=== PATIENT | male | born 1955 | race African-American/Black ===

== ENCOUNTER 2022-06-22 14:08 | Emergency (ER) | payer OTHER, MEDICAID ==
[~2022-06-22] VITALS: Ht 175.3 cm; Wt 80.0 kg
[2022-06-22] MEDS ORDERED: IBUP-2028 MT (14:57)
[2022-06-22] MEDS ORDERED: IBUPROFEN 400MG TABLET PO ONE (16:00)
[2022-06-22] MEDS ORDERED: ACETAMINOPHEN 325MG TABLET PO ONE (16:00)
[2022-06-22] MEDS ORDERED: IBUPROFEN 400MG TABLET PO SCH (17:45)
[2022-06-22] MEDS ORDERED: ACETAMINOPHEN 325MG TABLET PO SCH (17:45)
[2022-06-22 20:28] VITALS: BP 149/86
== END 2022-06-22 21:00 | disposition home or self-care (01) ==
LOC: ER 14:08
DX: M79.672 Pain in left foot (principal); M72.2 Plantar fascial fibromatosis; J44.9 Chronic obstructive pulmonary disease, unspecified; I10 Essential (primary) hypertension; Z86.73 Personal history of transient ischemic attack (TIA), and cerebral infarction without residual deficits
CPT/HCPCS: 99283

== ENCOUNTER 2022-08-11 18:34 | Inpatient (IN) | payer OTHER, MEDICAID ==
[~2022-08-11] VITALS: Ht 180.3 cm; Wt 89.8 kg
[~2022-08-11 18:34] MED LIST: AMLO10TA80 MT; ATOR80TA MT; CHOL2000; CLOP75TA33 MT; IBUP-2028 MT; SACU1TAB7 MT
[2022-08-11 19:48] LABS: BASOPHILS % 0.4 % (0.0-2.0); CHLORIDE 107 mEq/L (98-107); EOSINOPHILS % 8.3 % (0.0-5.0); HEMOGLOBIN. 12.5 g/dL (14.0-18.0); LYMPHOCYTES % 23.1 % (20.0-50.0); MEAN CORPUSCULAR HEMOGLOBIN 30.1 pg (28.0-32.0); MEAN CORPUSCULAR VOLUME 94.3 fL (80.0-94.0); MEAN PLATELET VOLUME 8.8 fl (7.4-10.4); MONOCYTES % 6.4 % (2.0-8.0); NEUTROPHILS % 61.8 % (40.0-76.0); PLATELET 279 x1000/uL (130-400); RED BLOOD CELL COUNT 4.14 mill/uL (4.7-6.1); RED CELL DISTRIBUTION WIDTH 12.8 % (11.6-14.6)
[2022-08-11] MEDS ORDERED: SODIUM CHLORIDE 0.9% 1,000 ML IV NR (21:15)
[2022-08-11] MEDS ORDERED: ACETAMINOPHEN 325MG TABLET PO NR (21:45)
[2022-08-12 08:10] VITALS: BP 120/78; PULSE 76; RESP 19; TEMP 97.5
[2022-08-12] MEDS ORDERED: CLONIDINE 0.1MG TABLET PO PRN (11:15)
[2022-08-12] MEDS: AMLODIPINE 10MG TABLET PO SCH (11:15)
[2022-08-12] MEDS ORDERED: MAGNESIUM/ALUMINUM HYDROXIDE/SIMETHICONE 30ML UDC PO PRN (11:15)
[2022-08-12 12:00] VITALS: BP 120/78; PULSE 76; RESP 19; TEMP 97.5
[2022-08-12] MEDS: ENOXAPARIN 30MG/0.3ML SYR SUBCUT SCH (12:00)
[2022-08-12 16:00] VITALS: BP 118/68; PULSE 78; RESP 17; TEMP 97.7
[2022-08-12 18:20] LABS: CREATINE KINASE 1126 IU/L (39-308)
[2022-08-12 20:00] VITALS: BP 104/70; PULSE 81; RESP 19; TEMP 97.5
[2022-08-13] VITALS: BP 116/88; PULSE 81; RESP 18; TEMP 98.1
[2022-08-13 04:00] VITALS: BP 124/92; PULSE 78; RESP 20; TEMP 98.1
[2022-08-13] MEDS ORDERED: SODIUM CHLORIDE 0.9% 1,000 ML IV SCH (07:15)
[2022-08-13] MEDS ORDERED: LACTULOSE 20G/30ML UDC PO SCH (07:15)
[2022-08-13 08:00] VITALS: BP 144/80; PULSE 81; RESP 18; TEMP 98
[2022-08-13] MEDS: AMLODIPINE 10MG TABLET PO SCH (10:16)
[2022-08-13] MEDS: CLOPIDOGREL 75MG TABLET PO SCH (10:16)
[2022-08-13] MEDS: ENOXAPARIN 30MG/0.3ML SYR SUBCUT SCH (10:18)
[2022-08-13 12:00] VITALS: BP 120/76; PULSE 75; RESP 18; TEMP 97.4
[2022-08-13] MEDS ORDERED: IPRATROPIUM/ALBUTEROL 0.5-3(2.5)MG/3ML NEB HHN PRN (14:15)
[2022-08-13] MEDS: SODIUM CHLORIDE 0.9% 1,000 ML IV SCH ×2 (15:42→20:50)
[2022-08-13 16:00] VITALS: BP 115/83; PULSE 82; RESP 20; TEMP 98.8
[2022-08-13 16:51] LABS: BASOPHILS % 0.6 % (0.0-2.0); EOSINOPHILS % 11.5 % (0.0-5.0); HEMATOCRIT. 37.9 % (42.0-52.0); HEMOGLOBIN. 12.4 g/dL (14.0-18.0); LYMPHOCYTES % 39.4 % (20.0-50.0); MEAN CORPUSCULAR HEMOGLOBIN 29.7 pg (28.0-32.0); MEAN CORPUSCULAR VOLUME 91.1 fL (80.0-94.0); MEAN PLATELET VOLUME 8.8 fl (7.4-10.4); MONOCYTES % 8.6 % (2.0-8.0); NEUTROPHILS % 39.9 % (40.0-76.0); PLATELET 325 x1000/uL (130-400); RED BLOOD CELL COUNT 4.16 mill/uL (4.7-6.1); RED CELL DISTRIBUTION WIDTH 12.7 % (11.6-14.6)
[2022-08-13 20:00] VITALS: BP 120/81; PULSE 87; RESP 20; TEMP 97.3
[2022-08-14] VITALS: BP 131/80; PULSE 69; RESP 17; TEMP 98.7
[2022-08-14 04:00] VITALS: BP 126/75; PULSE 72; RESP 18; TEMP 99.3
[2022-08-14 06:31] LABS: BASOPHILS % 0.7 % (0.0-2.0); HEMOGLOBIN. 12.5 g/dL (14.0-18.0); LYMPHOCYTES % 41.8 % (20.0-50.0); MEAN CORPUSCULAR HEMOGLOBIN 30.6 pg (28.0-32.0); MEAN PLATELET VOLUME 8.9 fl (7.4-10.4); MONOCYTES % 8.7 % (2.0-8.0); NEUTROPHILS % 36.8 % (40.0-76.0); PLATELET 336 x1000/uL (130-400); RED BLOOD CELL COUNT 4.07 mill/uL (4.7-6.1); RED CELL DISTRIBUTION WIDTH 12.6 % (11.6-14.6)
[2022-08-14 08:00] VITALS: BP 122/89; PULSE 70; RESP 18; TEMP 97.4
[2022-08-14] MEDS: CLOPIDOGREL 75MG TABLET PO SCH (08:52)
[2022-08-14] MEDS: AMLODIPINE 10MG TABLET PO SCH (08:52)
[2022-08-14] MEDS: ENOXAPARIN 30MG/0.3ML SYR SUBCUT SCH (08:53)
[2022-08-14] MEDS: ALLOPURINOL 100 MG TABLET PO SCH (11:50)
[2022-08-14 12:00] VITALS: BP 128/72; PULSE 73; RESP 18; TEMP 97.3
[2022-08-14 13:07] LABS: ANTI-NUCLEAR ANTIBODIES DIRECT Negative (Negative)
[2022-08-14 13:27] LABS: HEPATITIS B SURFACE ANTIGEN NEGATIVE
[2022-08-14] MEDS: SODIUM CHLORIDE 0.9% 1,000 ML IV SCH (13:30)
[2022-08-14 16:00] VITALS: BP 136/74; PULSE 65; RESP 18; TEMP 97.6
[2022-08-14] MEDS ORDERED: ACETAMINOPHEN 325MG TABLET PO PRN (16:00)
[2022-08-14 22:13] LABS: INR 1.1; PROTHROMBIN TIME 11.3 sec (9.6-11.0)
[2022-08-15] MEDS: SODIUM CHLORIDE 0.9% 1,000 ML IV SCH (05:13)
[2022-08-15 06:21] LABS: INR 1.1; PROTHROMBIN TIME 11.3 sec (9.6-11.0)
[2022-08-15 06:25] LABS: BASOPHILS % 0.8 % (0.0-2.0); EOSINOPHILS % 10.1 % (0.0-5.0); HEMATOCRIT. 34.9 % (42.0-52.0); HEMOGLOBIN. 11.6 g/dL (14.0-18.0); LYMPHOCYTES % 42.5 % (20.0-50.0); MEAN CORPUSCULAR VOLUME 90.5 fL (80.0-94.0); MEAN PLATELET VOLUME 8.9 fl (7.4-10.4); MONOCYTES % 7.2 % (2.0-8.0); NEUTROPHILS % 39.4 % (40.0-76.0); PLATELET 379 x1000/uL (130-400); RED BLOOD CELL COUNT 3.85 mill/uL (4.7-6.1); RED CELL DISTRIBUTION WIDTH 12.8 % (11.6-14.6)
[2022-08-15 08:00] VITALS: BP 143/89; PULSE 78; RESP 18; TEMP 97.1
[2022-08-15] MEDS: ALLOPURINOL 100 MG TABLET PO SCH (08:35)
[2022-08-15] MEDS: CLOPIDOGREL 75MG TABLET PO SCH (08:35)
[2022-08-15] MEDS: AMLODIPINE 10MG TABLET PO SCH (08:35)
[2022-08-15] MEDS: ENOXAPARIN 30MG/0.3ML SYR SUBCUT SCH (08:36)
[2022-08-15 12:00] VITALS: BP 128/84; PULSE 72; RESP 18; TEMP 97.1
[2022-08-15 16:00] VITALS: BP 123/93; PULSE 72; RESP 18; TEMP 97.3
[2022-08-15 20:00] VITALS: BP 126/76; PULSE 83; RESP 20; TEMP 97.7
[2022-08-16] VITALS: BP 141/93; PULSE 71; RESP 20; TEMP 98.7
[2022-08-16 04:00] VITALS: BP 132/84; PULSE 73; RESP 18; TEMP 97.6
[2022-08-16 07:17] LABS: BASOPHILS % 0.6 % (0.0-2.0); EOSINOPHILS % 7.4 % (0.0-5.0); HEMOGLOBIN. 12.1 g/dL (14.0-18.0); LYMPHOCYTES % 43.7 % (20.0-50.0); MEAN CORPUSCULAR HEMOGLOBIN 30.8 pg (28.0-32.0); MEAN CORPUSCULAR VOLUME 92.1 fL (80.0-94.0); MEAN PLATELET VOLUME 8.7 fl (7.4-10.4); MONOCYTES % 7.2 % (2.0-8.0); NEUTROPHILS % 41.1 % (40.0-76.0); PLATELET 400 x1000/uL (130-400); RED BLOOD CELL COUNT 3.91 mill/uL (4.7-6.1); RED CELL DISTRIBUTION WIDTH 12.9 % (11.6-14.6)
[2022-08-16 07:33] LABS: CHLORIDE 114 mEq/L (98-107)
[2022-08-16 08:00] VITALS: BP 128/88; PULSE 76; RESP 20; TEMP 97.1
[2022-08-16] MEDS: RIFAXIMIN 550 MG TABLET PO SCH ×2 (08:44→21:00)
[2022-08-16] MEDS: AMLODIPINE 10MG TABLET PO SCH (08:44)
[2022-08-16] MEDS: ALLOPURINOL 100 MG TABLET PO SCH (08:44)
[2022-08-16] MEDS: ENOXAPARIN 30MG/0.3ML SYR SUBCUT SCH (08:45)
[2022-08-16] MEDS: CLOPIDOGREL 75MG TABLET PO SCH (08:46)
[2022-08-16 12:00] VITALS: BP 127/76; PULSE 75; RESP 19; TEMP 97.2
[2022-08-16 12:39] LABS: CLARITY URINE CLEAR (CLEAR); COLOR URINE YELLOW (YELLOW); KETONES URINE NEGATIVE (NEGATIVE); LEUKOCYTE ESTERASE URINE NEGATIVE (NEGATIVE); NITRITE URINE NEGATIVE (NEGATIVE); OCCULT BLOOD URINE NEGATIVE (NEGATIVE); PH URINE 5.5 (4.5-8.0); PROTEIN URINE TRACE (NEGATIVE); SPECIFIC GRAVITY URINE 1.016 (1.005-1.030)
[2022-08-16] MEDS ORDERED: LACTULOSE 20G/30ML UDC PO PRN (12:45)
[2022-08-16] MEDS ORDERED: NA PHOS,M-B/NA PHOS,DI-BA ENEMA 118ML PR NR (14:30)
[2022-08-16 16:00] VITALS: BP 97/69; PULSE 88; RESP 18; TEMP 96.9
[2022-08-16 20:00] VITALS: BP 119/78; PULSE 81; RESP 18; TEMP 98.2
[2022-08-16] MEDS: LACTULOSE 20G/30ML UDC PO SCH (21:00)
[2022-08-17] VITALS: BP 149/91; PULSE 87; RESP 19; TEMP 98.4
[2022-08-17 04:00] VITALS: BP 130/83; PULSE 79; RESP 19; TEMP 98.7
[2022-08-17 06:06] LABS: BASOPHILS % 1.2 % (0.0-2.0); EOSINOPHILS % 5.9 % (0.0-5.0); HEMATOCRIT. 35.5 % (42.0-52.0); HEMOGLOBIN. 11.8 g/dL (14.0-18.0); LYMPHOCYTES % 38.3 % (20.0-50.0); MEAN CORPUSCULAR HEMOGLOBIN 29.9 pg (28.0-32.0); MEAN CORPUSCULAR VOLUME 90.3 fL (80.0-94.0); MEAN PLATELET VOLUME 8.8 fl (7.4-10.4); MONOCYTES % 8.3 % (2.0-8.0); NEUTROPHILS % 46.3 % (40.0-76.0); PLATELET 435 x1000/uL (130-400); RED BLOOD CELL COUNT 3.93 mill/uL (4.7-6.1); RED CELL DISTRIBUTION WIDTH 13.1 % (11.6-14.6)
[2022-08-17 08:00] VITALS: BP 127/76; PULSE 74; RESP 18; TEMP 97.1
[2022-08-17] MEDS: LACTULOSE 20G/30ML UDC PO SCH ×2 (10:13→20:17)
[2022-08-17] MEDS: RIFAXIMIN 550 MG TABLET PO SCH ×2 (10:13→20:17)
[2022-08-17] MEDS: AMLODIPINE 10MG TABLET PO SCH (10:13)
[2022-08-17 12:00] VITALS: BP 145/78; PULSE 78; RESP 18; TEMP 97.3
[2022-08-17 16:00] VITALS: BP 131/90; PULSE 96; RESP 20; TEMP 97.9
[2022-08-17] MEDS: ONDANSETRON HCL 4MG/2ML INJ IV PRN (18:58)
[2022-08-17 20:00] VITALS: BP 143/101; PULSE 96; RESP 20; TEMP 97.7
[2022-08-18] VITALS: BP 141/94; PULSE 96; RESP 20; TEMP 97.9
[2022-08-18 04:00] VITALS: BP 132/89; PULSE 56; RESP 20; TEMP 96.6
[2022-08-18 07:21] LABS: BASOPHILS % 0.6 % (0.0-2.0); EOSINOPHILS % 2.5 % (0.0-5.0); HEMATOCRIT. 35.3 % (42.0-52.0); LYMPHOCYTES % 23.7 % (20.0-50.0); MEAN CORPUSCULAR HEMOGLOBIN 30.5 pg (28.0-32.0); MEAN CORPUSCULAR VOLUME 90.3 fL (80.0-94.0); MEAN PLATELET VOLUME 8.6 fl (7.4-10.4); MONOCYTES % 7.7 % (2.0-8.0); NEUTROPHILS % 65.5 % (40.0-76.0); PLATELET 510 x1000/uL (130-400); RED BLOOD CELL COUNT 3.91 mill/uL (4.7-6.1); RED CELL DISTRIBUTION WIDTH 12.9 % (11.6-14.6)
[2022-08-18 08:00] VITALS: BP 106/73; PULSE 94; RESP 19; TEMP 97.1
[2022-08-18] MEDS: LACTULOSE 20G/30ML UDC PO SCH ×2 (08:56→20:05)
[2022-08-18] MEDS: RIFAXIMIN 550 MG TABLET PO SCH ×2 (08:56→20:05)
[2022-08-18] MEDS: AMLODIPINE 10MG TABLET PO SCH (08:56)
[2022-08-18 12:00] VITALS: BP 121/86; PULSE 87; RESP 19; TEMP 97.7
[2022-08-18] MEDS: ONDANSETRON HCL 4MG/2ML INJ IV PRN (13:58)
[2022-08-18] MEDS: SODIUM CHLORIDE 0.9% 1,000 ML IV SCH (14:00)
[2022-08-18 16:00] VITALS: BP 133/98; PULSE 87; RESP 20; TEMP 98.2
[2022-08-18 20:00] VITALS: BP 115/85; PULSE 94; RESP 20; TEMP 98.1
[2022-08-19] VITALS (37 sets, daily range): BP systolic 102–279; BP diastolic 50–278; PULSE 72–109; RESP 13–79; TEMP 97–101.5
[2022-08-19] MEDS: SODIUM CHLORIDE 0.9% 1,000 ML IV SCH (03:28)
[2022-08-19] MEDS ORDERED: THROMBIN (BOVINE) 5000 UNITS/VIAL TOP ONE (06:37)
[2022-08-19] MEDS ORDERED: LIDOCAINE HCL/EPINEPHRINE 1%-EPI 1:100,000 20 ML VIAL ONE (06:37)
[2022-08-19] MEDS ORDERED: BACITRACIN 15GM TUBE TOP ONE (06:37)
[2022-08-19] MEDS ORDERED: GENTAMICIN SULF 40MG/ML 2ML VIAL ONE (06:37)
[2022-08-19] MEDS: RIFAXIMIN 550 MG TABLET PO SCH ×2 (08:15→20:08)
[2022-08-19] MEDS: AMLODIPINE 10MG TABLET PO SCH (08:15)
[2022-08-19] MEDS: LACTULOSE 20G/30ML UDC PO SCH ×2 (08:16→20:08)
[2022-08-19] MEDS ORDERED: ROCURONIUM BROMIDE 10MG/ML VIAL 5ML IV ONE (09:10)
[2022-08-19] MEDS ORDERED: PROPOFOL 200MG/20ML VIAL IV ONE (09:10)
[2022-08-19] MEDS ORDERED: NEOSTIGMINE METHYLSULFATE 1MG/ML 10 ML VIAL ONE (09:10)
[2022-08-19] MEDS ORDERED: DEXAMETHASONE 4MG/ML 1ML VIAL ONE (09:10)
[2022-08-19] MEDS ORDERED: ONDANSETRON HCL 4MG/2ML INJ ONE (09:10)
[2022-08-19] MEDS ORDERED: GLYCOPYRROLATE 0.2 MG/ML 2ML VIAL ONE ×3 (09:11→11:14)
[2022-08-19] MEDS ORDERED: FENTANYL CITRATE/PF 50MCG/ML 2ML VIAL ONE (09:11)
[2022-08-19] MEDS ORDERED: MIDAZOLAM HCL 2 MG/2 ML VIAL ONE (09:11)
[2022-08-19] MEDS ORDERED: CEFAZOLIN SODIUM 1000MG/VIAL ONE (11:01)
[2022-08-19] MEDS ORDERED: LABETALOL HCL 5MG/ML VIAL 20ML IV ONE (11:02)
[2022-08-19] MEDS ORDERED: HYDRALAZINE 20MG/ML VIAL ONE (11:02)
[2022-08-19] MEDS ORDERED: EPHEDRINE SULFATE 50MG/ML VIAL ONE (11:02)
[2022-08-19] MEDS ORDERED: HYDROMORPHONE HCL/PF 2MG/ML CPJ ONE (11:02)
[2022-08-19] MEDS ORDERED: MORPHINE SULFATE 2 MG/ML CPJ (NOT FOR IM USE) IV PRN (11:15)
[2022-08-19] MEDS ORDERED: NALOXONE HCL 0.4MG/ML VIAL IV PRN (11:30)
[2022-08-19] MEDS ORDERED: NICARDIPINE 100 MG in SODIUM CHLORIDE 0.9% 60 ML IV PRN (12:00)
[2022-08-19 12:13] LABS: BASOPHILS % 0.8 % (0.0-2.0); EOSINOPHILS % 2.5 % (0.0-5.0); HEMOGLOBIN. 10.2 g/dL (14.0-18.0); LYMPHOCYTES % 21.3 % (20.0-50.0); MEAN CORPUSCULAR HEMOGLOBIN 30.1 pg (28.0-32.0); MEAN CORPUSCULAR VOLUME 91.2 fL (80.0-94.0); MEAN PLATELET VOLUME 8.6 fl (7.4-10.4); MONOCYTES % 4.5 % (2.0-8.0); NEUTROPHILS % 70.9 % (40.0-76.0); PLATELET 501 x1000/uL (130-400); RED CELL DISTRIBUTION WIDTH 13.1 % (11.6-14.6)
[2022-08-19] MEDS: DEXAMETHASONE 4MG/ML 1ML VIAL IV SCH ×3 (12:55→23:11)
[2022-08-19] MEDS: DEXT 5%/LACTATED RINGERS 1,000 ML IV SCH ×2 (12:55→20:09)
[2022-08-19 13:10] LABS: BG BASE EXCESS -3.5 mmol/L (-2.0-2.0); BG CARBOXYHEMOGLOBIN 0.3 % (0.5-1.5); BG DEOXYHEMOGLOBIN 2.6 % (0.0-5.0); BG FRACTION INSPIRED OXYGEN 60; BG HCO3 ACT 23.1 mmol/L (22.0-26.0); BG METHEMOGLOBIN 0.2 % (0.0-1.5); BG OXYGEN SATURATION 97.4 % (92.0-98.5); BG OXYHEMOGLOBIN 96.9 % (94.0-97.0); BG PCO2 48.6 mmHg (35.0-45.0); BG PH 7.295 (7.350-7.450); BG PO2 108.6 mmHg (75.0-100.0); BG SAMPLE SITE ALINE; BG TOTAL HEMOGLOBIN 11.4 g/dL (12.0-18.0); BG VENT MODE T PIECE
[2022-08-19] MEDS ORDERED: CEFAZOLIN SODIUM 1000MG/VIAL IV SCH (14:00)
[2022-08-19] MEDS: CEFAZOLIN 1000MG PREMIX 50 ML IV SCH (17:12)
[2022-08-20] VITALS (47 sets, daily range): BP systolic 103–150; BP diastolic 22–104; PULSE 94–111; RESP 10–46; TEMP 97.4–97.7
[2022-08-20] MEDS: CEFAZOLIN 1000MG PREMIX 50 ML IV SCH ×3 (01:38→18:42)
[2022-08-20 05:20] LABS: HEMATOCRIT. 32.7 % (42.0-52.0); HEMOGLOBIN. 10.7 g/dL (14.0-18.0); LYMPHOCYTES % 7.2 % (20.0-50.0); MEAN CORPUSCULAR HEMOGLOBIN 29.9 pg (28.0-32.0); MEAN CORPUSCULAR VOLUME 91.1 fL (80.0-94.0); NEUTROPHILS % 88.8 % (40.0-76.0); PLATELET 560 x1000/uL (130-400); RED BLOOD CELL COUNT 3.59 mill/uL (4.7-6.1)
[2022-08-20 05:22] LABS: CHLORIDE 112 mEq/L (98-107)
[2022-08-20] MEDS: DEXAMETHASONE 4MG/ML 1ML VIAL IV SCH ×2 (06:27→12:17)
[2022-08-20] MEDS: DEXT 5%/LACTATED RINGERS 1,000 ML IV SCH ×2 (06:28→09:53)
[2022-08-20] MEDS: LACTULOSE 20G/30ML UDC PO SCH ×2 (08:20→20:23)
[2022-08-20] MEDS: RIFAXIMIN 550 MG TABLET PO SCH ×2 (08:20→20:23)
[2022-08-20] MEDS: AMLODIPINE 10MG TABLET PO SCH (08:21)
[2022-08-20] MEDS ORDERED: BISACODYL 10MG SUPP PR PRN (12:15)
[2022-08-20] MEDS: DOCUSATE SODIUM 100MG CAPSULE PO SCH (17:30)
[2022-08-21] VITALS (8 sets, daily range): BP systolic 136–154; BP diastolic 80–97; PULSE 93–109; RESP 19–22; TEMP 95.5–97.9; O2SAT 93
[2022-08-21] MEDS: DEXT 5%/LACTATED RINGERS 1,000 ML IV SCH ×2 (03:42→13:35)
[2022-08-21 06:19] LABS: HEMATOCRIT. 31.1 % (42.0-52.0); HEMOGLOBIN. 10.1 g/dL (14.0-18.0); MEAN CORPUSCULAR HEMOGLOBIN 29.4 pg (28.0-32.0); MEAN CORPUSCULAR VOLUME 90.8 fL (80.0-94.0); MEAN PLATELET VOLUME 8.6 fl (7.4-10.4); PLATELET 559 x1000/uL (130-400); RED BLOOD CELL COUNT 3.43 mill/uL (4.7-6.1); RED CELL DISTRIBUTION WIDTH 13.2 % (11.6-14.6)
[2022-08-21] MEDS: AMLODIPINE 10MG TABLET PO SCH (09:56)
[2022-08-21] MEDS: RIFAXIMIN 550 MG TABLET PO SCH (09:56)
[2022-08-21] MEDS: LACTULOSE 20G/30ML UDC PO SCH (09:57)
[2022-08-21] MEDS: DOCUSATE SODIUM 100MG CAPSULE PO SCH ×2 (09:57→16:56)
[2022-08-21] MEDS ORDERED: ALLO100T MT (13:27)
[2022-08-21 14:17] LABS: PLATELET ESTIMATE INCREASED
[2022-08-21] MEDS ORDERED: IPRATROPIUM/ALBUTEROL 0.5-3(2.5)MG/3ML NEB HHN PRN (15:30)
[2022-08-21] MEDS ORDERED: LACT10SO81 MT (16:06)
[2022-08-21] MEDS ORDERED: GUAIFENESIN 600MG ER TABLET PO SCH (21:00)
[2022-08-22] MEDS ORDERED: LACTULOSE 20G/30ML UDC PO SCH (09:00)
== END 2022-08-21 18:48 | DRG 471 ==
LOC: ER 18:34 → 6EST 08-12 01:23 → MICUSO 08-19 10:54 → 6EST 08-20 16:55
PROVIDERS: ADMIT Internal Medicine; ATTEND Internal Medicine
PROC: 4A00X4Z Measurement of Central Nervous Electrical Activity, External Approach (ICD-10-PCS; 2022-08-13)
PROC: 0RG10A0 Fusion of Cervical Vertebral Joint with Interbody Fusion Device, Anterior Approach, Anterior Column, Open Approach (ICD-10-PCS; principal; 2022-08-19)
PROC: 0RB30ZZ Excision of Cervical Vertebral Disc, Open Approach (ICD-10-PCS; 2022-08-19)
DX: M48.02 Spinal stenosis, cervical region (principal); G82.50 Quadriplegia, unspecified; N17.0 Acute kidney failure with tubular necrosis; G92.8 Other toxic encephalopathy; I13.0 Hypertensive heart and chronic kidney disease with heart failure and stage 1 through stage 4 chronic kidney disease, or unspecified chronic kidney disease; I50.32 Chronic diastolic (congestive) heart failure; E87.1 Hypo-osmolality and hyponatremia; I69.351 Hemiplegia and hemiparesis following cerebral infarction affecting right dominant side; M62.82 Rhabdomyolysis; M47.12 Other spondylosis with myelopathy, cervical region; B17.9 Acute viral hepatitis, unspecified; N18.9 Chronic kidney disease, unspecified; E11.22 Type 2 diabetes mellitus with diabetic chronic kidney disease; E86.0 Dehydration; I25.10 Atherosclerotic heart disease of native coronary artery without angina pectoris; K80.20 Calculus of gallbladder without cholecystitis without obstruction; M47.816 Spondylosis without myelopathy or radiculopathy, lumbar region; D63.1 Anemia in chronic kidney disease; M41.9 Scoliosis, unspecified; M10.9 Gout, unspecified; N28.1 Cyst of kidney, acquired; J44.9 Chronic obstructive pulmonary disease, unspecified; E87.5 Hyperkalemia; M25.78 Osteophyte, vertebrae; M47.22 Other spondylosis with radiculopathy, cervical region; R13.10 Dysphagia, unspecified; R26.2 Difficulty in walking, not elsewhere classified; R53.81 Other malaise; R74.01 Elevation of levels of liver transaminase levels; R79.89 Other specified abnormal findings of blood chemistry; Z79.02 Long term (current) use of antithrombotics/antiplatelets; Z95.1 Presence of aortocoronary bypass graft; Z79.899 Other long term (current) drug therapy; Z98.1 Arthrodesis status
CPT/HCPCS: 36415; 36600; 70551; 71045; 72040; 72141; 72148; 74018; 76000; 76700; 76770; 80048; 80053; 80076; 81003; 82140; 82375; 82550; 82805; 83880; 84484; 84550; 85025; 85379; 86038; 86160; 86705; 86709; 86803; 86850; 86900; 87340; 88304; 88311; 93005; 93970; 95816; 95925; 95926; 95928; 95929; 97110; 97116; 97162; 97164; 97166; 97530; 97535; 99285; C1893; J0360; J0690; J1100; J1170; J1580; J1650; J2250; J2270; J2405; J2704; J2710; J3010; J3490; J7030; J7121; L0172; C1713